=== PATIENT | female | born 1990 | race Caucasian/White ===

== ENCOUNTER 2021-06-16 15:24 | Outpatient (CLI) | payer BC, SELFPAY ==
[2021-06-16 16:39] LABS: SARS-CoV-2 Ag Negative (Negative)
== END 2021-06-16 15:25 | disposition home or self-care (01) ==
LOC: CHSLAB 15:29
PROVIDERS: PCP Internal Medicine; Visit Provider Internal Medicine
DX: J06.9 Acute upper respiratory infection, unspecified (principal); J02.9 Acute pharyngitis, unspecified; Z20.822 Contact with and (suspected) exposure to COVID-19
CPT/HCPCS: 87426; C9803

== ENCOUNTER 2025-02-17 14:06 | Outpatient (CLI) | payer SELFPAY ==
--- NOTE | ~2025-02-17 | US_ITS ---
EXAMINATION: US thyroid DATE: 02/17/2025 14:29 INDICATION: Difficulty swallowing TECHNIQUE: Multiple ultrasound images of the thyroid were obtained. COMPARISON: None. FINDINGS: The right thyroid lobe measures 4.5 x 1.7 x 1.8 cm. Within the upper pole of the right lobe of the thyroid gland is a 2.8 x 1.8 x 2.1 mm nodule: Composition - spongiform Echogenicity - hypoechoic (2) Shape - wider than tall Margin - smooth Echogenic foci - none. = TR2 not suspicious. The left thyroid lobe measures 4.4 x 1.8 x 1.3 cm. The isthmus measures 0.3cm in anterior to posterior dimension. There is normal echotexture and echogenicity throughout the remainder of the thyroid gland. No additi onal discrete nodules identified. Normal vascular flow is present. IMPRESSION: TR2 nodule in the right lobe of the thyroid gland measuring 2.8 mm in greatest dimension. This nodule is not sonographically suspicious and no FNA is recommended Follow-up may be performed. Reviewed, dictated and finalized at location A.
== END 2025-02-17 14:07 | disposition home or self-care (01) ==
PROVIDERS: PCP Chiropractor; Visit Provider Chiropractor
DX: E04.9 Nontoxic goiter, unspecified (principal)
CPT/HCPCS: 76536